=== PATIENT | female | born 1960 | race Caucasian/White ===

== ENCOUNTER 2019-09-08 08:15 | Outpatient (CLI) | payer OTHER ==
[~2019-09-08 08:15] MED LIST: CELEBREX50 MG PO; CYMBALTA30 MG PO; LEVSIN0.125 MG; MICARDIS80 MG PO; PREVACID15 MG; PROTONIX20 MG; ULTRACET PO
== END 2019-09-08 09:49 | disposition home or self-care (01) ==
LOC: SONOGRAMA 08:15
DX: E04.2 Nontoxic multinodular goiter (principal)